=== PATIENT | male | born 1985 | race Caucasian/White ===

== ENCOUNTER 2017-03-05 14:45 | Emergency (ER) | payer SELFPAY ==
[2017-03-05 15:55] LABS: #Basophils 0.1 thou/uL (0.0-0.2); #Eosinphils 0.3 thou/uL (0.0-0.7); #Lymphocytes 3.1 thou/uL (1.20-3.40); #Monocytes 1.5 thou/uL (0.11-0.59); #Neutrophils 12.8 thou/uL (1.40-6.50); %Basophils 0.6 % (0.0-1.0); %Eosinophils 1.6 % (0.0-10.0); %Lymphocytes 17.4 % (21.0-51.0); %Monocytes 8.6 % (0.0-10.0); Hematocrit 42.9 % (42.0-52.0); Mean Platelet Volume 7.9 fL (7.4-10.4); Red Blood Cell (RBC) Count 4.17 mill/uL (4.70-6.10); White Blood Cell (WBC) Count 17.8 thou/uL (4.8-10.8)
[2017-03-05] MEDS ORDERED: Ondansetron HCl/PF 4 MG/2 ML Vial ONE (15:55)
[2017-03-05 16:18] LABS: ALT (SGPT) 23 U/L (8-55); AST (SGOT) 27 U/L (5-34); Alkaline Phosphatase 115 U/L (40-150); Anion Gap 14 mmol/L (10-20); BUN (Urea Nitrogen) 9 mg/dL (8.9-20.6); Bilirubin, Total 0.3 mg/dL (0.2-1.2); Calc. Creatinine Clearance 0 mL/min (70-130); Calcium 9.8 mg/dL (7.8-10.44); Carbon Dioxide 27 mmol/L (22-29); Chloride 101 mmol/L (98-107); Estimated GFR-MDRD Greater than 90; Globulin 3.6 g/dL (2.4-3.5); Lipase 27 U/L (8-78); Protein, Total 7.9 g/dL (6.0-8.3)
[2017-03-05] MEDS ORDERED: Acetaminophen/Codeine 30-300mg Tablet ONE ×2 (16:30→16:32)
[2017-03-05 17:30] LABS: Bilirubin Negative (Negative); Blood, Urine Large (Negative); Glucose, Urine (Dipstick) Negative (Negative); Ketone, Urine Negative (Negative); Nitrite Negative (Negative); Protein, Urine (Dipstick) Trace mg/dL (Neg-Trace); Urobilinogen 0.2 mg/dL (0.2-1.0)
[2017-03-05 17:33] LABS: Bacteria/HPF Rare-Few HPF (None Seen); Hyaline Casts/LPF 4-6 HYALINE CAST LPF (0-3 Hyaline); RBC/HPF GREATER THAN 50-TNTC HPF (0-3); Squamous Epithelial 0-3 HPF (0-3)
== END 2017-03-05 17:51 | disposition home or self-care (01) ==
LOC: ERS 14:45
DX: N39.0 Urinary tract infection, site not specified (principal); H66.92 Otitis media, unspecified, left ear; G89.29 Other chronic pain; F41.9 Anxiety disorder, unspecified; F43.10 Post-traumatic stress disorder, unspecified; F17.210 Nicotine dependence, cigarettes, uncomplicated; I50.9 Heart failure, unspecified; G47.00 Insomnia, unspecified
CPT/HCPCS: 80053; 81003; 81015; 83690; 85025; 87081; 87430; 93005; 96361; 96374; 99406; J2405

== ENCOUNTER 2017-03-22 17:42 | Emergency (ER) | payer SELFPAY ==
[2017-03-22] MEDS ORDERED: Lorazepam 2 MG/ML VIAL ONE (19:10)
[2017-03-22] MEDS ORDERED: Morphine 2 mg/2ml in 0.9% NaCl PF SYRINGE ONE (19:10)
[2017-03-22 19:29] LABS: #Basophils 0.1 thou/uL (0.0-0.2); #Eosinphils 0.1 thou/uL (0.0-0.7); #Lymphocytes 4.2 thou/uL (1.20-3.40); #Monocytes 1.2 thou/uL (0.11-0.59); #Neutrophils 5.7 thou/uL (1.40-6.50); %Basophils 1.1 % (0.0-1.0); %Eosinophils 1.1 % (0.0-10.0); %Monocytes 10.5 % (0.0-10.0); Hematocrit 46.6 % (42.0-52.0); Mean Platelet Volume 7.5 fL (7.4-10.4); Red Blood Cell (RBC) Count 4.56 mill/uL (4.70-6.10); White Blood Cell (WBC) Count 11.3 thou/uL (4.8-10.8)
[2017-03-22] MEDS ORDERED: Ondansetron HCl/PF 4 MG/2 ML Vial ONE (19:41)
[2017-03-22 19:47] LABS: ALT (SGPT) 14 U/L (8-55); AST (SGOT) 24 U/L (5-34); Alkaline Phosphatase 112 U/L (40-150); Anion Gap 14 mmol/L (10-20); BUN (Urea Nitrogen) 11 mg/dL (8.9-20.6); Bilirubin, Total 0.6 mg/dL (0.2-1.2); Calc. Creatinine Clearance 0 mL/min (70-130); Calcium 10.4 mg/dL (7.8-10.44); Carbon Dioxide 27 mmol/L (22-29); Chloride 102 mmol/L (98-107); Estimated GFR-MDRD Greater than 90; Globulin 4.1 g/dL (2.4-3.5); Protein, Total 8.9 g/dL (6.0-8.3)
[2017-03-22] MEDS ORDERED: Ketorolac Tromethamine 30 MG/ML VIAL ONE (20:11)
[2017-03-22] MEDS ORDERED: Acetaminophen 500 MG TAB ONE (20:23)
--- NOTE | 2017-03-22 20:39 | CT ---
CT CERVICAL SPINE NONCONTRAST: HISTORY: 31-year-old male status post acute cervical trauma from fall due to seizure. FINDINGS: There are no jumped or perched facets. There is no evidence of acute fracture. The vertebral body h eights are maintained. There is no prevertebral soft tissue swelling. Incidental finding of developm ental non-fusion of the posterior arch of C1. Otherwise, the cervical spine is normal. IMPRESSION: No evidence of acute fracture or acute traumatic subluxation. gemini POS: DAVID
--- NOTE | 2017-03-22 20:40 | CT ---
CT BRAIN NONCONTRAST: HISTORY: 31-year-old male status post acute head trauma from fall due to seizure. Altered mental status. Nause a, emesis. FINDINGS: The ventricles are normal in size and configuration. There is no midline shift or any other mass eff ect. There is no evidence of acute intracranial hemorrhage, large cortical infarct, or extraaxial fl uid collection. The laird matter /white matter differentiation is maintained. The calvarium is intac t. The tympanomastoid cavities, and the upper portions of the paranasal sinuses included in these im ages, are grossly clear. IMPRESSION: Normal. gemini POS: DAVID
== END 2017-03-22 21:14 | disposition home or self-care (01) ==
LOC: ERS 17:42
DX: S00.03XA Contusion of scalp, initial encounter (principal); G40.909 Epilepsy, unspecified, not intractable, without status epilepticus; G47.00 Insomnia, unspecified; F17.210 Nicotine dependence, cigarettes, uncomplicated; F41.9 Anxiety disorder, unspecified; F43.10 Post-traumatic stress disorder, unspecified; W19.XXXA Unspecified fall, initial encounter
CPT/HCPCS: 70450; 72125; 80053; 85025; 96361; 96374; 96375; 99406; J1885; J2060; J2270; J2405

== ENCOUNTER 2017-05-07 12:33 | Day surgery (SDC) | payer OTHER ==
[2017-05-06 17:53] VITALS: BMI 23.7
--- NOTE | 2017-05-07 17:03 | OP ---
DATE OF PROCEDURE: 05/07/2017 PROCEDURE PERFORMED: Colonoscopy with snare polypectomy. PREPROCEDURE DIAGNOSES: 1. History of anorectal polyps. 2. Bloody stools. 3. History of human papillomavirus infection. POSTPROCEDURE DIAGNOSES: 1. Exam to cecum; good bowel preparation. 2. Diffusely tortuous colon. 3. Diminutive 3 mm sessile polyp in the mid rectum, removed by cold snare technique. 4. Diminutive (2 mm) polyp in the anal canal, removed by cold snare. 5. Small to medium swollen internal hemorrhoids. 6. No overt evidence of colitis. 7. No polyps. 8. Otherwise normal colonoscopy. PROCEDURE IN DETAIL: Written informed consent was obtained. The patient was brought to the endoscop y suite. Total intravenous anesthesia was provided by Dr. Rob Navarro and associates. The patient was placed in the left lateral decubitus position. A digital rectal exam was performed that showed a small 2 mm perianal skin tag in the anterior midline. A Pentax video colonoscope was inserted throu gh the anal canal and advanced under direct visualization to the cecum. Position in the cecum was ve rified by clear identification of the appendiceal orifice and the ileocecal valve. The quality of th e bowel preparation was good. Each colon segment was examined carefully as the colonoscope was slowl y withdrawn from the cecum. Vascular pattern and haustral folds appeared normal. There was no evide nce of colitis, polyp or diverticulum. In the mid rectum, a 3 mm sessile polyp was identified and re moved by cold snare technique. Good hemostasis was verified post-polypectomy. A smaller 2 mm flat a nal polyp was removed from the anal canal by cold snare technique. Also seen on retroflex exam were several small to medium sized swollen internal hemorrhoids that were not actively bleeding. The colo n was then decompressed. A few benign hypertrophied anal papillae were also noted. The colon was de compressed as the colonoscope was removed from the patient. He was transferred to the [facility] area for post-procedure monitoring. There were no immediate complications. RECOMMENDATIONS: 1. Await pathology results. 2. Ask the patient to phone me in 1 week for pathology results. 3. Recommendations regarding repeating colonoscopy will be forthcoming after review of pathology res ults. 4. Sitz baths t.i.d. for the next 2-3 days. 5. Anusol-HC suppositories 1 per rectum daily for the next 3-5 days and then p.r.n. 6. Follow up in GI Clinic in 6-8 weeks.
== END 2017-05-07 15:39 | disposition home or self-care (01) ==
LOC: SDC 12:33
PROVIDERS: ATTEND Internal Medicine Gastroenterology
PROC: 0DBP8ZX Excision of Rectum, Via Natural or Artificial Opening Endoscopic, Diagnostic (ICD-10-PCS; principal; 2017-05-07)
DX: K62.1 Rectal polyp (principal); A63.0 Anogenital (venereal) warts; Q43.8 Other specified congenital malformations of intestine; K64.8 Other hemorrhoids; G40.909 Epilepsy, unspecified, not intractable, without status epilepticus; I12.9 Hypertensive chronic kidney disease with stage 1 through stage 4 chronic kidney disease, or unspecified chronic kidney disease; K21.9 Gastro-esophageal reflux disease without esophagitis; N18.9 Chronic kidney disease, unspecified; F32.9 Major depressive disorder, single episode, unspecified; F41.9 Anxiety disorder, unspecified; F17.200 Nicotine dependence, unspecified, uncomplicated; Z88.2 Allergy status to sulfonamides; Z88.5 Allergy status to narcotic agent; Z98.890 Other specified postprocedural states; Z21 Asymptomatic human immunodeficiency virus [HIV] infection status; Z80.0 Family history of malignant neoplasm of digestive organs; Z90.49 Acquired absence of other specified parts of digestive tract
CPT/HCPCS: 88305

== ENCOUNTER 2017-05-23 14:55 | Inpatient (IN) | payer OTHER, SELFPAY ==
[2017-05-23 15:42] LABS: #Basophils 0.1 thou/uL (0.0-0.2); #Eosinphils 0.4 thou/uL (0.0-0.7); #Lymphocytes 2.7 thou/uL (1.20-3.40); #Neutrophils 6.2 thou/uL (1.40-6.50); %Basophils 0.6 % (0.0-1.0); %Eosinophils 4.3 % (0.0-10.0); %Lymphocytes 25.6 % (21.0-51.0); %Monocytes 9.9 % (0.0-10.0); %Neutrophils 59.7 % (42.0-75.0); Hemoglobin 16.4 g/dL (14.0-18.0); Mean Corpuscular HGB CONC 33.7 g/dL (32.0-36.0); Mean Platelet Volume 7.9 fL (7.4-10.4); Platelet Count 426 thou/uL (130-400); RBC Distribution Width 12.8 % (11.5-14.5); Red Blood Cell (RBC) Count 4.81 mill/uL (4.70-6.10); White Blood Cell (WBC) Count 10.4 thou/uL (4.8-10.8)
[2017-05-23] MEDS ORDERED: Lorazepam 2 MG/ML VIAL ONE (15:49)
[2017-05-23 15:52] LABS: ALT (SGPT) 11 U/L (8-55); AST (SGOT) 18 U/L (5-34); Albumin 4.6 g/dL (3.5-5.0); Alkaline Phosphatase 113 U/L (40-150); Anion Gap 13 mmol/L (10-20); BUN (Urea Nitrogen) 9 mg/dL (8.9-20.6); Bilirubin, Total 0.3 mg/dL (0.2-1.2); Calc. Creatinine Clearance 0 mL/min (70-130); Carbon Dioxide 29 mmol/L (22-29); Chloride 103 mmol/L (98-107); Estimated GFR-MDRD Greater than 90; Globulin 3.6 g/dL (2.4-3.5); Glucose 97 mg/dL (70-105); Potassium 4.5 mmol/L (3.5-5.1); Protein, Total 8.2 g/dL (6.0-8.3); Sodium 140 mmol/L (136-145)
[2017-05-23 16:03] LABS: Bilirubin Negative (Negative); Blood, Urine Negative (Negative); Clarity CLEAR (Clear); Glucose, Urine (Dipstick) Negative (Negative); Leukocyte Negative (Negative); Nitrite Negative (Negative); Protein, Urine (Dipstick) Negative (Neg-Trace); Specific Gravity, Urine 1.016 (1.002-1.036); Urobilinogen 0.2 mg/dL (0.2-1.0)
[2017-05-23 16:13] LABS: Amphetamine Not Detected (NotDetected); Barbiturates Screen Detected (NotDetected); Benzodiazepine Screen Not Detected (NotDetected); Cocaine Metabolite Screen Not Detected (NotDetected); Medtox Control Line Valid? VALID (VALID); Medtox Reader # READER 4; Methadone Not Detected (NotDetected); Methamphetamine Not Detected (NotDetected); Opiate Screen Not Detected (NotDetected); Oxycodone Screen Not Detected (NotDetected); Phencyclidine (PCP) Not Detected (NotDetected); THC/Cannabinoid Screen Detected (NotDetected); Tricyclic Screen Not Detected (NotDetected)
[2017-05-23] MEDS ORDERED: HYDROcodone/Acetaminophen 5/325 mg Tablet ONE (16:38)
--- NOTE | 2017-05-23 16:56 | CT ---
CT OF HEAD NONCONTRAST 05/23/17 COMPARISON: 03/22/17 INDICATION: Seizure, fall, headache. FINDINGS: There is no ventriculomegaly, mass effect, midline shift or acute intracranial hemorrhage. There is s cattered paranasal sinus mucosal thickening. IMPRESSION: No acute intracranial hemorrhage or mass effect. POS: [facility]
--- NOTE | 2017-05-23 17:00 | CT ---
NONCONTRAST FACIAL BONE CT 05/23/17 INDICATION: Seizure with fall and facial injury, pain. FINDINGS: The nasal bones are intact. No fracture of the orbital wilson or maxillary sinus wilson. There is promi nent scattered paranasal sinus mucosal thickening and large retention cyst formation seen within the bilateral maxillary sinuses. No acute fracture of either zygomatic arch. The temporomandibular joints maintain alignment. IMPRESSION: No acute facial fractures. Prominent paranasal sinus mucosal inflammation. POS: [facility]
--- NOTE | 2017-05-23 17:02 | CT ---
CERVICAL SPINE CT NONCONTRAST 05/23/17 CLINICAL HISTORY: Seizure with fall. Neck injury. Pain. FINDINGS: The craniocervical junction is intact. No compression fracture or subluxation. There is focal kyphosi s centered at the C5 segment. This may be positional. Correlate clinically. No acute facet malalignme nt or retropulsion of bone into the vertebral canal. IMPRESSION: No acute osseous abnormality of the cervical spine. POS: DAVID
[2017-05-23] MEDS ORDERED: cefTRIAXone\\ROCEPHIN 2 GM in Sodium Chloride 0.9% 100 ML IVPB SCH (17:30)
[2017-05-23] MEDS ORDERED: Ondansetron HCl/PF 4 MG/2 ML Vial ONE (17:48)
[2017-05-23] MEDS ORDERED: Lidocaine 1% (PF) 30 ML VIAL ONE (18:04)
[2017-05-23 19:04] LABS: Color Of CSF Supernatant COLORLESS (Colorless); Tube # 2; Unspun CSF Color COLORLESS (Colorless)
[2017-05-23 19:05] LABS: CSF Source CSF; Clarity Hazy (Clear); RBC Count - Manual 88 /cumm (None Seen); Tube # 1; WBC/NonHematics Count - Manual 1 /cumm (0-5)
[2017-05-23 19:07] LABS: CSF Source CSF; Clarity Clear (Clear); RBC Count - Manual 8 /cumm (None Seen); Tube # 4; WBC/NonHematics Count - Manual 1 /cumm (0-5)
[2017-05-23 19:18] LABS: CSF, Glucose 63 mg/dl (40-70); CSF, Protein 37 mg/dL (15-40)
[2017-05-23] MEDS ORDERED: Acetaminophen 325 MG TAB PO PRN (20:25)
[2017-05-23] MEDS ORDERED: Ondansetron HCl/PF 4 MG/2 ML Vial IVP PRN (20:25)
[2017-05-23] MEDS ORDERED: Ondansetron ODT 4 MG TAB SL PRN (20:25)
[2017-05-23] MEDS ORDERED: Acetaminophen/Codeine 30-300mg Tablet PO PRN (20:42)
[2017-05-23] MEDS ORDERED: Zolpidem Tartrate 5 MG TAB PO PRN (20:42)
[2017-05-23] MEDS: Gabapentin 300 MG CAP PO SCH (20:57)
[2017-05-23] MEDS: Sodium Chloride 0.9% 1,000 ML IV SCH (20:58)
[2017-05-23] MEDS: Diazepam 5 MG TAB PO SCH (20:59)
[2017-05-23 21:52] VITALS: BMI 22.9
[2017-05-23 23:01] LABS: HIV (1/2) Antibody/Antigen Non-Reactive (NonReactive)
[2017-05-23] MEDS: HYDROcodone/Acetaminophen 5/325 mg Tablet PO PRN (23:14)
[2017-05-24] MEDS ORDERED: HYDROcodone/Acetaminophen 5/325 mg Tablet PO SCH (01:30)
[2017-05-24] MEDS ORDERED: cloNIDine 0.1 MG TAB PO SCH ×3 (01:30→21:00)
[2017-05-24] MEDS ORDERED: Zolpidem Tartrate 5 MG TAB PO SCH (02:00)
[2017-05-24] MEDS ORDERED: Zolpidem Tartrate 5 MG TAB PO PRN (02:03)
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
[2017-05-24 04:23] LABS: Hep C IgG Ab Non-Reactive (NonReactive); Hep C Index 0.17 S/CO (0-0.79)
[2017-05-24 05:13] LABS: Syphilis Antibody Nonreactive (Nonreactive); Syphilis Antibody Index 0.08 S/CO (<1.00 Non-Reactive)
[2017-05-24] MEDS: Sodium Chloride 0.9% 1,000 ML IV SCH ×3 (05:15→21:39)
--- NOTE | 2017-05-24 05:55 | PDOC.FM ---
- Subjective Subjective: Pt reports doing well. Reports having some neck pain due to the seizure. Denies any more sx's of seizure acitivity overnight. No dizziness, lightheadness. Denies any SOB or chest pain. Denies any other sx's at this time. - Objective MAR Reviewed: Yes Vital Signs & Weight: Vital Signs (12 hours) Temp Pulse Resp BP BP Pulse Ox 05/24/17 01:49 130/77 05/23/17 20:10 98.1 F 107 H 18 134/80 96 I&O: 05/22/17 05/23/17 05/24/17 06:59 06:59 06:59 Intake Total 1720 Balance 1720 Result Diagrams: 05/23/17 15:25 05/23/17 15:25 Radiology Reviewed by me: Yes (No acute abnormality on CT scans of head and face ) <Paul Malin - Last Filed: 05/24/17 07:22> - Objective Vital Signs & Weight: Vital Signs (12 hours) Temp Pulse Resp BP BP Pulse Ox 05/24/17 07:51 97.7 F 67 18 106/68 96 05/24/17 01:49 98.8 F 99 17 130/77 130/77 95 I&O: 05/23/17 05/24/17 05/25/17 06:59 06:59 06:59 Intake Total 1720 Balance 1720 Result Diagrams: 05/23/17 15:25 05/23/17 15:25 <Raffi Villareal - Last Filed: 05/24/17 09:47> Phys Exam - Physical Examination Constitutional: NAD HEENT: PERRLA, moist MMs Neck: no nodes, supple, full ROM Respiratory: no wheezing, no rales, no rhonchi, clear to auscultation bilateral Cardiovascular: RRR, no significant murmur, no rub Gastrointestinal: soft, non-tender, no distention, positive bowel sounds Musculoskeletal: no edema, pulses present Neurological: non-focal, normal sensation, moves all 4 limbs Lymphatic: no nodes Deviation from normal: Affect a little off. Does not respond to questions all the time Skin: no rash, normal turgor <Paul Malin - Last Filed: 05/24/17 07:22> Dx/Plan (1) Perichondritis Code(s): M94.8X9 - OTHER SPECIFIED DISORDERS OF CARTILAGE, UNSPECIFIED SITES Status: Acute (2) Seizure Code(s): R56.9 - UNSPECIFIED CONVULSIONS Status: Acute (3) High risk sexual behavior Code(s): Z72.51 - HIGH RISK HETEROSEXUAL BEHAVIOR Status: Acute (4) Chronic diarrhea Code(s): K52.9 - NONINFECTIVE GASTROENTERITIS AND COLITIS, UNSPECIFIED Status : Acute - Plan Plan: 1) Perichondritis -Ciprofloxacin. Will continue to monitor edema and left pinna 2) Seizure Disorder -Seizure likely to him not taking his home medications. -Restarted home mediciations at this time. -Will continue to monitor for seizure activity 3) Chronic Diarrhea -reports 2 mo hx of watery diarrhea. -Stool cx pending 4) High Risk sexual behavior -HIV, syphillis negative. -CSF negative -Hep C negative <Paul Malin - Last Filed: 05/24/17 07:22> Attending Addendum - Attending Addendum I personally evaluated the patient and discussed the management with Dr. Malin I agree with the History, Examination, Assessment and Plan documented above. Pt doing better. Ear does not look acutely infected at this time. Pt stable for discharge at this time. Will refill medications for seizure prevention since he ran out. <Raffi Villareal - Last Filed: 05/24/17 09:47>
[2017-05-24] MEDS ORDERED: FLU VACC QS2017-18 36 mo. & older 0.5 ML SYRINGE IM ONE (09:00)
[2017-05-24] MEDS: Carvedilol 6.25 MG TAB PO SCH ×2 (10:07→19:29)
[2017-05-24] MEDS: Gabapentin 300 MG CAP PO SCH ×3 (10:09→21:36)
[2017-05-24] MEDS: HYDROcodone/Acetaminophen 5/325 mg Tablet PO PRN ×3 (10:10→21:37)
[2017-05-24] MEDS: Diazepam 5 MG TAB PO SCH ×2 (10:10→21:36)
[2017-05-24] MEDS: Losartan 25 MG TAB PO SCH (15:39)
[2017-05-24] MEDS ORDERED: Ciprofloxacin 500 MG TAB PO SCH (22:00)
[2017-05-24] MEDS ORDERED: Cipro 250 MG TAB PO SCH (22:00)
[2017-05-25] MEDS: Sodium Chloride 0.9% 1,000 ML IV SCH ×2 (04:09→13:28)
[2017-05-25] MEDS: HYDROcodone/Acetaminophen 5/325 mg Tablet PO PRN ×3 (05:51→14:08)
[2017-05-25] MEDS ORDERED: Ciprofloxacin 500 MG TAB PO SCH (06:00)
[2017-05-25] MEDS ORDERED: Cipro 250 MG TAB PO SCH (06:00)
--- NOTE | 2017-05-25 06:25 | PDOC.FM ---
- Subjective Subjective: Pt reports doing fine. Just having some headaches. Denies any other sx's at this time. Says he ran out of all his medications. Denies any acute events overnight. Denies any other problems at this time. - Objective MAR Reviewed: Yes Vital Signs & Weight: Vital Signs (12 hours) Temp Pulse Resp BP BP Pulse Ox 05/25/17 04:00 97.6 F 72 18 116/73 98 05/24/17 21:37 124/70 05/24/17 20:15 98.1 F 97 18 96 05/24/17 20:00 98.1 F 97 18 124/70 96 05/24/17 19:29 128/77 I&O: 05/23/17 05/24/17 05/25/17 06:59 06:59 06:59 Intake Total 1720 850 Balance 1720 850 Result Diagrams: 05/23/17 15:25 05/23/17 15:25 <Paul Malin - Last Filed: 05/25/17 08:42> - Objective Vital Signs & Weight: Vital Signs (12 hours) Temp Pulse Resp BP BP Pulse Ox 05/25/17 13:58 98.2 F 100 18 137/84 100 05/25/17 08:40 115/70 05/25/17 08:00 97.4 F L 85 18 116/70 98 I&O: 05/24/17 05/25/17 05/26/17 06:59 06:59 06:59 Intake Total 1720 850 Balance 1720 850 Result Diagrams: 05/23/17 15:25 05/23/17 15:25 <Stefanie Dietz - Last Filed: 05/25/17 16:58> Phys Exam - Physical Examination Constitutional: NAD HEENT: PERRLA, moist MMs, oral pharynx no lesions Neck: no nodes, supple, full ROM Respiratory: no wheezing, no rales, no rhonchi, clear to auscultation bilateral Cardiovascular: RRR, no significant murmur, no rub Gastrointestinal: soft, non-tender, no distention, positive bowel sounds Musculoskeletal: no edema, pulses present Neurological: non-focal, normal sensation, moves all 4 limbs Lymphatic: no nodes Psychiatric: normal affect, A&O x 3 Skin: no rash, normal turgor, cap refill <2 seconds <Paul Malin - Last Filed: 05/25/17 08:42> Dx/Plan (1) Perichondritis Code(s): M94.8X9 - OTHER SPECIFIED DISORDERS OF CARTILAGE, UNSPECIFIED SITES Status: Acute (2) Seizure Code(s): R56.9 - UNSPECIFIED CONVULSIONS Status: Acute (3) High risk sexual behavior Code(s): Z72.51 - HIGH RISK HETEROSEXUAL BEHAVIOR Status: Acute (4) Chronic diarrhea Code(s): K52.9 - NONINFECTIVE GASTROENTERITIS AND COLITIS, UNSPECIFIED Status : Acute - Plan Plan: 1) Perichondritis -Ciprofloxacin. Will continue to monitor edema and left pinna -Bactrim upon assistance 2) Seizure Disorder -Seizure likely due to him not taking his home medications. -Restarted home mediciations at this time. -Will continue to monitor for seizure activity 3) Chronic Diarrhea -reports 2 mo hx of watery diarrhea. -Stool cx pending -lactoferrin negative, No shiga or campylobacter seen -Likely IBS-D related. Recommend josue bowel regimen. 4) High Risk sexual behavior -HIV, syphillis negative. -CSF negative -Hep C negative Pt here still due to living in a skilled nursing and needing assistance with medications. Pt was not able to be seen by Case management as it was the weekend. Will await getting medications assistance to prevent seizures. Will await recs. Patients ready for D/C. <Paul Malin - Last Filed: 05/25/17 08:42> Attending Addendum - Attending Addendum I personally evaluated the patient and discussed the management with Dr. Malin. I agree with the History, Examination, Assessment and Plan documented above with any addition or exceptions noted below. The patient is doing well. Will be discharged to f/u with Dr. Peña. <Stefanie Dietz - Last Filed: 05/25/17 16:58>
[2017-05-25] MEDS: Gabapentin 300 MG CAP PO SCH (08:40)
[2017-05-25] MEDS: Losartan 25 MG TAB PO SCH (08:40)
[2017-05-25] MEDS: Carvedilol 6.25 MG TAB PO SCH (08:40)
[2017-05-25] MEDS: Diazepam 5 MG TAB PO SCH (08:40)
[2017-05-25 14:00] VITALS: BP 137/84; TEMP 98.2
[2017-05-25 15:20] LABS: Folate,Hemolysate 377.5 ng/mL (Not Estab.); Hematocrit 46.4 % (37.5-51.0); RBC Folate Test Component 814 ng/mL (>498)
--- NOTE | 2017-05-26 00:56 | DIS-2 ---
DATE OF ADMISSION: 05/23/2017 DATE OF DISCHARGE: 05/25/2017 ADMITTING ATTENDING: Dr. Villareal. DISCHARGE ATTENDING: Dr. Dietz. RESIDENT: Dr. Paul Malin, PGY-1. CONSULTATIONS: None. PROCEDURES: Cervical spine CT showed no acute osseous abnormality of cervical spine. Facial bone CT showed prominent paranasal sinus mucosal inflammation. No acute facial fractures. Brain CT showed no acute intracranial hemorrhage or mass effect. PRIMARY DIAGNOSES: 1. Perichondritis. 2. Seizure disorder. 3. Chronic diarrhea. 4. High-risk sexual behavior. DISCHARGE MEDICATIONS: Included, carvedilol 6.25 mg p.o. b.i.d, diazepam 5 mg p.o. b.i.d., gabapentin 300 mg p.o. t.i.d., losartan 25 mg p.o. daily, prazosin 2 mg p.o. at bedtime, and zolpidem tartrate 10 mg p.o. at bedtime. No medications were discontinued at this time. He did not have any medications he was taking upon admission. HISTORY OF PRESENT ILLNESS AND BRIEF HOSPITAL COURSE: This is a patient who came to the ED after having a witnessed grand mal seizure about noon today. He states that due to his finances, he had ran out of his diazepam and Ativan, which he takes for seizures. Seizure lasted 3 minutes and was witnessed by a friend who brought him in. States he had some bladder incontinence during the episode and nausea and vomiting immediately after the episode. He states that he has also had some left ear pain and swelling for the last 3 days and has had some decreased hearing in the left ear. He also complained of a 2-month history of watery diarrhea that he had continued to have been worked up outpatient as well and nonbloody. When he got here, the labs were fine. No abnormalities seen. UA was negative. He was complaining of some stiff neck, so they did a spinal tap. CSF was colorless, showed glucose of 63, total protein of 37, showed red blood cells in tap. During this time, we admitted him and started him back on his home medications, Valium and gabapentin, which he took for seizures. We started him back on his home blood pressure medications. He no longer had any more seizures. He did report having a headache and asked for multiple stronger medications other than Tylenol and ibuprofen. We just kept him on Tylenol and ibuprofen. We are going to discharge him on Thursday. manager of community relations could not get to him to help assist him with medication, as he could not afford his medications, so he stayed here until the next day, so case management could assist him with medication assistance. At this time, we got him set up with medication assistance and sent him home. DISPOSITION: Stable. DISCHARGE LOCATION: Home. ACTIVITY: Activity is as tolerated. DIET: Heart healthy diet. FOLLOWUP: He will need to follow up with his primary care doctor within 14 days for hospital follow-up. MARIBEL
[2017-05-28 11:22] LABS: Routine O & P Final report (.)
== END 2017-05-25 15:59 | disposition home or self-care (01) | DRG 101 ==
LOC: ERS 14:55 → T4-B 18:53
PROVIDERS: ADMIT Family Medicine; ATTEND Family Medicine
PROC: 009U3ZX Drainage of Spinal Canal, Percutaneous Approach, Diagnostic (ICD-10-PCS; principal; 2017-05-23)
DX: G40.409 Other generalized epilepsy and epileptic syndromes, not intractable, without status epilepticus (principal); F17.210 Nicotine dependence, cigarettes, uncomplicated; F41.9 Anxiety disorder, unspecified; M54.9 Dorsalgia, unspecified; G47.00 Insomnia, unspecified; I10 Essential (primary) hypertension; F43.12 Post-traumatic stress disorder, chronic; Z90.5 Acquired absence of kidney; Z90.2 Acquired absence of lung [part of]; Z88.5 Allergy status to narcotic agent; H61.012 Acute perichondritis of left external ear; K52.9 Noninfective gastroenteritis and colitis, unspecified; Z72.51 High risk heterosexual behavior; Z91.120 Patient's intentional underdosing of medication regimen due to financial hardship
CPT/HCPCS: 36415; 62270; 70450; 70486; 72125; 80053; 80306; 81003; 82607; 82747; 82945; 83630; 84146; 84157; 85014; 85025; 86780; 86803; 87045; 87046; 87070; 87177; 87205; 87389; 87449; 87521; 87804; 87899; 89051; 90471; 90682; 96361; 96365; G0008; J0696; J0744; J2001; J2060; J2270; J2405; J7050; Q2036

== ENCOUNTER 2017-07-26 12:46 | Emergency (ER) | payer SELFPAY ==
[2017-07-26 13:51] LABS: #Basophils 0.1 thou/uL (0.0-0.2); #Eosinphils 0.5 thou/uL (0.0-0.7); #Lymphocytes 1.8 thou/uL (1.20-3.40); #Monocytes 0.8 thou/uL (0.11-0.59); #Neutrophils 5.1 thou/uL (1.40-6.50); %Basophils 0.7 % (0.0-1.0); %Eosinophils 6.6 % (0.0-10.0); %Lymphocytes 21.7 % (21.0-51.0); %Monocytes 9.5 % (0.0-10.0); %Neutrophils 61.6 % (42.0-75.0); Hemoglobin 14.8 g/dL (14.0-18.0); Mean Corpuscular HGB CONC 33.3 g/dL (32.0-36.0); Mean Corpuscular Hemoglobin 33.7 pg (27.0-31.0); Mean Platelet Volume 7.6 fL (7.4-10.4); Platelet Count 409 thou/uL (130-400); RBC Distribution Width 13.2 % (11.5-14.5); White Blood Cell (WBC) Count 8.3 thou/uL (4.8-10.8)
[2017-07-26 14:13] LABS: ALT (SGPT) 10 U/L (8-55); AST (SGOT) 12 U/L (5-34); Albumin 4.2 g/dL (3.5-5.0); Alkaline Phosphatase 89 U/L (40-150); Anion Gap 10 mmol/L (10-20); BUN (Urea Nitrogen) 12 mg/dL (8.9-20.6); Bilirubin, Total 0.2 mg/dL (0.2-1.2); Calc. Creatinine Clearance 0 mL/min (70-130); Calcium 9.4 mg/dL (7.8-10.44); Carbon Dioxide 26 mmol/L (22-29); Chloride 107 mmol/L (98-107); Estimated GFR-MDRD Greater than 90; Glucose 87 mg/dL (70-105); Potassium 4.3 mmol/L (3.5-5.1); Protein, Total 7.2 g/dL (6.0-8.3); Sodium 139 mmol/L (136-145)
[2017-07-26 14:58] LABS: Bilirubin Negative (Negative); Blood, Urine Large (Negative); Clarity CLOUDY (Clear); Glucose, Urine (Dipstick) Negative (Negative); Leukocyte Trace (Negative); Nitrite Negative (Negative); Protein, Urine (Dipstick) Negative (Neg-Trace); Specific Gravity, Urine 1.009 (1.002-1.036); Urobilinogen 0.2 mg/dL (0.2-1.0)
[2017-07-26] MEDS ORDERED: Lorazepam 1 MG TAB ONE (14:58)
[2017-07-26 15:00] LABS: Bacteria/HPF None Seen HPF (None Seen); Hyaline Casts/LPF 7-10 HYALINE CAST LPF (0-3 Hyaline); Pathc Cast-AUWi Flag 2.47 (0-2.49); RBC/HPF GREATER THAN 50-TNTC HPF (0-3); WBC/HPF 0-3 HPF (0-3)
[2017-07-26 15:09] LABS: Amphetamine Detected (NotDetected); Barbiturates Screen Not Detected (NotDetected); Benzodiazepine Screen Detected (NotDetected); Cocaine Metabolite Screen Not Detected (NotDetected); Medtox Reader # READER 4; Methadone Not Detected (NotDetected); Methamphetamine Not Detected (NotDetected); Opiate Screen Not Detected (NotDetected); Oxycodone Screen Not Detected (NotDetected); Phencyclidine (PCP) Not Detected (NotDetected); THC/Cannabinoid Screen Detected (NotDetected); Tricyclic Screen Not Detected (NotDetected)
[2017-07-26 15:10] LABS: Medtox Control Line Valid? VALID (VALID)
== END 2017-07-26 15:37 | disposition home or self-care (01) ==
LOC: ERS 12:46
DX: G40.909 Epilepsy, unspecified, not intractable, without status epilepticus (principal); I50.9 Heart failure, unspecified; G47.00 Insomnia, unspecified; F41.9 Anxiety disorder, unspecified; F43.10 Post-traumatic stress disorder, unspecified; F17.210 Nicotine dependence, cigarettes, uncomplicated; Z79.899 Other long term (current) drug therapy
CPT/HCPCS: 36415; 80053; 80306; 81003; 81015; 84146; 85025; 99284